=== PATIENT | female | born 1925 | race Caucasian/White ===

== ENCOUNTER → 2016-06-10 | Outpatient (CLI) | payer MEDICARE ==
[~2016-06-10] MED LIST: ACETAMINOPHEN P1 TA1 PO; ALLEGRA 180MG180 MG PO; ARICEPT23 MG PO; ASPIRIN EC81 MG PO; AZO-CRANBERRY450 MG PO; BACTRIM DS 8001 TAB PO; BUSPAR 10MG TAB10 MG PO; BUSPIRONE5 MG PO; CEFDINIR 300MG300 MG PO; CLARITIN10 MG PO; CYANOCOBAL1000 MCG/1 IM; D-10001 TAB PO; D-31000 IU PO; DIAZEPAM5 MG PO; DIFLUCAN150 MG PO; DONEPEZIL 10MG10 MG PO; E-400400 IU PO; ESCITALOPRAM20 MG PO; ESTRADIOL0.025 MG/1 TD; ESTRADIOL0.5 MG PO; FERROUS SULFATE65 MG PO; FOLBIC RF1 TAB IM; HYDROCODONE1 TABLET PO; IBU400 MG PO; IBUPROFEN200 MG PO; LEVAQUIN500 MG PO; LEVOTHYROXIN0.088 MG PO; LEXAPRO 10 MG T10 MG PO; MULTI VITAMINS1 TA1 PO; NAPROSYN 500MG500 MG PO; OMNICEF 300 MG300 MG PO; ONDANSETRON 4MG4 M1 PO; PANTOPRAZOLE SO40 MG PO; PREMARIN 0.60.625 MG PO; PROTONIX20 MG PO; REQUIP 1 MG TABL1 MG PO; ROPINIROLE HYDRO1 MG PO; ROPINIROLE HYDRO2 MG PO; SINEMET 10/1001 TAB PO; SINEMET CR 50 M1 TE1 PO; SYNTHROID0.088 MG PO; VALIUM 5MG TABLE5 MG PO; XANAX 1MG TABLET1 MG PO; [UNRECOGNIZED DRUG - OTHER] PO
[2016-06-10 11:42] LABS: URINE BILIRUBIN - DIPSTICK NEGATIVE (NEG); URINE BLOOD 3+ (NEG)
== END ==
LOC: LAB 11:11
DX: N39.0 Urinary tract infection, site not specified (principal)

== ENCOUNTER 2016-09-16 16:34 | Inpatient (IN) | payer OTHER, MEDICARE ==
[~2016-09-16] VITALS: Ht 157.5 cm; Wt 49.6 kg
[2016-09-16 16:51] LABS: HEMOGLOBIN 11.7 g/dL (12.2-16.2); LYMPH # 3.2 K/mm3 (0.7-4.5); LYMPH % 46.1 % (10-50.0)
--- NOTE | 2016-09-16 17:03 | Emergency Room Report ---
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 N Clinical Suspician of Infection? N Mental Status: 1 - Regular (Normal Baseline) Sepsis Risk:Low Sepsis Risk Have you (or family members/close friends) recently traveled outside the [place]? N If Yes, where/when: Have you had exposure to infectious disease within the past month? TB? Other? Specify: Baseline ambulates w/ walker, per EMS had fall today and now c/o left hip pain. No numbness or tingling, no weakness. Now cannot ambulate. ALLERGIES Coded Allergies: Sulfa (Sulfonamide Antibiotics) (09/16/16) trimethoprim (09/16/16) Home Medications Reported Medications NAPROXEN (NAPROSYN 500MG TAB) 500 MG PO BIDP PRN NEEDED FOR PAIN/ INFLAMMATIO Alprazolam (Xanax 1MG) 1 MG PO TIDP PRN ANXIETY FERROUS SULFATE (Ferrous Sulfate) 325 MG PO BID VITAMIN B12 (Cyanocobalamin Injection) 1,000 MCG IM QMONTH CHOLECALCIFEROL (VITAMIN D3) (Vitamin D) 1,000 UNIT PO DAILY Carbidopa/Levodopa (Sinemet Cr 50-200 Tablet) 1 TAB PO QID ASPIRIN ENTERIC COATED (Aspirin EC) 81 MG PO DAILY Buspirone Hcl (Buspar 10MG) 10 MG PO TID ROPINIROLE HCL (Ropinirole) 2 MG PO BID Escitalopram Oxalate 20 MG PO DAILY Pantoprazole Sodium (Pantoprazole 40MG) 40 MG PO DAILY DONEPEZIL HCL (Donepezil 10MG Tablet) 20 MG PO QHS MULTIVITAMIN (One Daily Multivitamin) 1 TAB PO DAILY Estradiol 0.5 MG PO DAILY Acetaminophen/Diphenhydramin (Acetaminophen Pm 500 MG-25 MG) 1 TAB PO QHS Vitamin E (E-400) 400 IU PO DAILY Ibuprofen (Ibuprofen 200MG) 200 MG PO BID Levothyroxine Sodium (Synthroid 0.088MG) 100 MCG PO DAILY Ondansetron Hydrochloride (Ondansetron 4MG U/D TABLET (NON-CHEMO USE)) 4 MG PO Q6HS #30 CRANBERRY CONC/C/BACILL COAG (Azo Cranberry Tablet) 450 MG PO BID History Medical History General CAD? No Angina: No ME: No Hypertension? No Hyperlipidemia? No CHF? No DVT? No PE? No COPD? No Asthma? No Anemia? Yes GERD? No Gastric ulcers? No GI Bleed? No Hernia? No Thyroid Problems? Yes Hypothyroidism? Yes CVA? Yes Seizures? No Diabetes? No Renal Insuffiency? No End Stage Renal Disease? No UTI? Yes Stones? No GB Disease: No Nephritic Syndrome? No Asplenia? No Hepatitis? Yes Sickle Cell Disease? No Arthritis? Yes Migraines? No Cataracts? Yes Glaucoma? No MRSA? No HIV? No TB? No Anxiety? Yes Depression? Yes Cancer? Yes Site: SKIN ON NOSE More? No Immunization Hx Ped.Immunizations UTD Yes DT/Tetanus 1-4 Years Ago Flu 2014-16FSN Pneumonia Received In Past Surgical Hx Previous Surgery?Y BUNIONECTOMY HYSTERECTOMY BLADDER REPAIR RT HIP REPLACEMENT BILATERAL CATARACTS SKIN CA ON THE NOSE Family History Family Hx Diabetes No CAD Yes Hypertension Yes Hyperlipidemia No Cancer Yes TB No Social History Smoking Hx Smoker: Never Smoker Tobacco: No Type N/A Are you/the child exposed to second-hand smoke: No Alcohol Alcohol: No Review of Systems All Other Systems Reviewed and Negative Musculoskeletal see HPI Psychiatric/Neurological see HPI Physical Exam Vital Signs Vital Signs Date Time Temp Pulse Resp B/P Pulse O2 O2 Flow FiO2 Ox Delivery Rate 09/16 1646 16 09/16 1637 98.3 97 18 96 General Appearance normal appearance, WD/WN Eye Exam - bilateral eye normal exam, bilateral eye PERRL, bilateral eye EOMI Neck normal inspection, non-tender, supple, full range of motion Respiratory Status Yes: trachea midline, chest symmetrical, non tender chest. No: respiratory distress, tender on palpation, use of accessory muscles, pain on inspiration, pain on expiration, productive cough, non productive cough. Lung Sounds bilateral: normal breath sounds, lungs clear. Cardiovascular normal exam, regular rate/rhythm, no peripheral edema, no gallop, no JVD, no murmur, no rub, normal peripheral pulses Gastrointestinal normal bowel sounds, normal exam, non tender, soft, no organomegaly, no pulsatile mass, no guarding, no rebound Back no vertebral tenderness, bowel/bladder continent (diaper in place) Extremities pain both trochanters with palpation. Pelvis stable. Left leg rotated internally and slightly shortened. Good color, strong DP and PT pulses with brisk CR and fully sensate. ROM limited about both hips due to pain and morphine sulfate ordered IV. Neurologic alert, normal exam (seems to have slight dementia), nonfocal, clear speech, able to answer questions but is a little vague with answers. Glascow Coma Scale Glascow Coma Scale Response Value EYE response: 4 Spontaneously 4 MOTOR response: 6 OBEYS 6 VERBAL response: 5 Oriented & Converses 5 Total 15 Skin intact, normal color Medical Decision Making LABS/Meds/Orders Pt receiving controlled substance in ED? No Results/Orders Laboratory Tests 09/16/16 1630: Sodium 139, Potassium 4.0, Chloride 105, Carbon Dioxide 22, BUN 24 H, Creatinine 1.0, Estimated Creat Clear 36 L, Estimated GFR (MDRD) 52 L, Glucose 86, Calcium 8.4 L, Total Bilirubin 0.5, AST 14 L, ALT 9 L, Alkaline Phosphatase 74, Total Protein 6.7, Albumin 3.1 L, Globulin 3.6 H, Albumin/ Globulin Ratio 0.9 L, WBC 6.9, RBC 3.66 L, Hgb 11.7 L, Hct 36.2 L, MCV 99.0 H, RDW 14.2, Plt Count 177, MPV 7.8, Gran % 43.5, Gran # 3.0, Lymphocytes % 46.1 , Monocytes % 5.0, Eosinophils % 5.0, Basophils % 0.4, Lymphocytes # 3.2, Monocytes # 0.3, Eosinophils # 0.4, Basophils # 0.0, PUBS MCHC 32.4, MCH 32.0 H Current Medication Orders Sig/Aleksander Start time Last Medication Dose Route Stop Time Status Admin Morphine Sulfate 2 MG ONCE ONE 09/16 1644 DC 09/16 IV 09/16 Ondansetron HCl 4 MG ONCE ONE 09/16 1644 DC 09/16 IV 09/16 Ondansetron HCl 0 .STK-MED ONE 09/16 1644 DC .ROUTE Sodium Chloride 10 ML PRN PRN 09/16 1645 AC IV 09/17 1636 Morphine Sulfate 0 .STK-MED ONE 09/16 1644 DC .ROUTE Orders Procedure Date/time Status DIET-NOTHING BY MOUTH 09/16 D Active Decision to admit 09/[address] PELVIS W/O CONTRAST 09/[address] ABD W/RLQ PAIN REQ 09/16 1644 Complete URINARY CATHETER INSERT 09/16 1641 Active URINALYSIS/COMPLETE 09/16 1641 Active 12 LEAD EKG-BESSON (INITIAL) 09/16 1640 Active ELECTROCARDIOGRAM REQUEST 09/16 1640 Active CHEST-AP VIEW ONLY 09/16 1636 Active IV SALINE LOCK 09/16 1636 Active CBC WITH AUTO DIFF 09/16 163 Complete CHEM 12 PROFILE 09/16 163 Complete CM/EKG CM/EKG EKG NSR, rhythm, no evid. of ischemic chgs, no ectopy, normal QRS, normal NE, normal EKG (NSR 99;) XRAY/CT/US XRAY/CT/US CT pelvis CT interpretation by reviewed by me ([facility] report reviewed) Time results known: 1821 CT Results normal/NAD (comm intertroch fx L hip) Consult Physician Consult 1 Consult/PCP Dr. Chand ok to consult; PCP has been paged Time Called 1821 Reason Pt. Condition, Admission, Orthopedic eval/care Comments Dr. Chand paged Physician Consult 2 Time Called [address] Alvares covering for PCP Dr. Maloney Departure Departure Time of Disposition 1833 Disposition Still a Patient Clinical Impression Primary Impression: Closed left hip fracture Qualifiers: Encounter type: initial encounter Qualified Code: S72.002A - Fracture of unspecified part of neck of left femur, initial encounter for closed fracture Condition STABLE Referrals Amara EDMONDS,Marcelino Fried (Family) ED Critical Care Critical Care No at 1835
[2016-09-16 19:16] LABS: URINE BILIRUBIN - DIPSTICK NEGATIVE (NEG); URINE BLOOD 1+ (NEG)
[2016-09-16 20:21] VITALS: BP 139/81
[2016-09-16 21:55] VITALS: BP 139/81
--- NOTE | 2016-09-16 22:01 | PHARMACY CLINIC NOTE ---
See Addendum Patient Demographics Patient Demographics Admission date: 09/16/16 Date: 09/16/16 Time: 2200 Allergies Coded Allergies: Sulfa (Sulfonamide Antibiotics) (09/16/16) trimethoprim (09/16/16) HEIGHT- FT: 5 IN: 2.00 K.612 VTE General Information Labs: Laboratory Tests 09/16 1630 Hematology Hgb (12.2 - 16.2 g/dL) 11.7 L Hct (37.0 - 47.0 %) 36.2 L Plt Count (142 - 424 K/mm3) 177 Disclaimer The following section includes nursing documentation that has been pulled in for pharmacy review. Clinical trial participant? No VTE prophylaxis [id number] VTE prophylaxis ordered? Yes Type of prophylaxis/treatment: ICD at 2200
[2016-09-16] MEDS ORDERED: ALPRAZOLAM0.5 MG PO (23:29)
[2016-09-17] VITALS (14 sets, daily range): BP systolic 83–119; BP diastolic 39–62
[2016-09-17] MEDS ORDERED: ESCITALOPRAM 2020 MG PO (00:36)
[2016-09-17] MEDS ORDERED: DOCUSATE SODIU100 MG PO (00:36)
[2016-09-17] MEDS ORDERED: FERROUS SULFAT200 M1 PO (00:38)
[2016-09-17] MEDS ORDERED: DIFLUCAN 100MG100 MG PO (00:40)
[2016-09-17] MEDS ORDERED: SYNTHROID 0.1M0.1 MG PO (00:50)
[2016-09-17] MEDS ORDERED: LEADER MELATONIN5 MG PO (00:51)
[2016-09-17] MEDS ORDERED: NAPROSYN500 M1 PO (00:52)
[2016-09-17] MEDS ORDERED: QUETIAPINE FUMA25 MG PO ×2 (00:54→00:55)
[2016-09-17] MEDS ORDERED: REQUIP 1 MG TABL1 MG PO (00:56)
[2016-09-17] MEDS ORDERED: SENNA LAXATIVE8.6 MG PO (00:56)
[2016-09-17] MEDS ORDERED: OMEPRAZOLE40 MG PO (00:57)
[2016-09-17] MEDS ORDERED: ACETAMINOPHEN500 M5 PO (00:58)
[2016-09-17] MEDS ORDERED: DULCOLAX10 M1 RC (00:59)
[2016-09-17] MEDS ORDERED: LACTULOSE10 GM/15 M PO (01:00)
[2016-09-17] MEDS ORDERED: ZOFRAN ODT4 MG PO (01:01)
[2016-09-17] MEDS ORDERED: TEMAZEPAM15 MG PO (01:02)
--- NOTE | 2016-09-17 05:45 | RADIOLOGY REPORT PS360 ---
CHEST-AP VIEW ONLY HISTORY: Pain following injury ORDERING PHYSICIAN: Kayla Leiva MD PATIENT AGE: 89 years COMPARISON: 08/28/2014 FINDINGS: The cardiomediastinal silhouette and pulmonary vascularity are within normal limits. Increased density in the retrocardiac region consistent with ectasia/tortuosity of the aorta along with hiatal hernia The lungs are clear without infiltrates, suspicious nodules, or pleural effusions. There are old right rib fractures. IMPRESSION: No change with no acute finding
[2016-09-17 07:08] LABS: LYMPH # 1.5 K/mm3 (0.7-4.5); LYMPH % 29.2 % (10-50.0)
[2016-09-17 07:09] LABS: HEMOGLOBIN 9.7 g/dL (12.2-16.2)
--- NOTE | 2016-09-17 08:14 | RADIOLOGY REPORT PS360 ---
CT PELVIS W/O CONTRAST INDICATION: Spontaneous fall with bilateral hip pain and tenderness worse on the left. History of right hip replacement. POSSIBLE HIP FX ORDERING PHYSICIAN: Marcelino Maloney MD PATIENT AGE: 89 years COMPARISON: None TECHNIQUE: Axial images are obtained without contrast. Sagittal and coronal reformatted images are reviewed as well. FINDINGS: Comminuted intertrochanteric fractures present on the left with mild impaction of the fracture fragments. There is 12 mm medial displacement of the distal fracture fragment with mild varices angulation of the distal fracture fragment. There is generalized osteopenia. Bipolar prosthesis is present on the right with heterotopic bone about the right hip. There is an old left inferior pubic ramus fracture. 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 Heterogeneous increased soft tissue density is noted superior to the left hip consistent with hematoma. IMPRESSION: 1. Comminuted intertrochanteric left hip fracture. 2. Soft tissue swelling with intramuscular hematoma the left gluteus medius and minimus muscles 3. Right hip prosthesis in place
--- NOTE | 2016-09-17 08:55 | HISTORY AND PHYSICAL REPORT ---
Demographics: Admit date: 09/16/16 Chief complaint: HIP FRACTURE PRIMARY DIAGNOSIS: HIP FRACTURE Allergies: Coded Allergies: Sulfa (Sulfonamide Antibiotics) (09/16/16) trimethoprim (09/16/16) History of present illness: History of present illness: 89-year-old female resident [place] and currently under hospice care for failure to thrive. Family states patient is mobile per wheelchair in as a total assist from bed to wheelchair. [facility] and family said she probably forgot that she couldn't walk and stood and when she stood she fell. Patient was admitted for LEFT hip fracture and a surgery consult for possible surgery. Cardiology clearance for surgery Past medical history: Family HX Diabetes No CAD Yes Hypertension Yes Hyperlipidemia No Cancer Yes TB No Immunization HX Ped.Immunizations UTD Yes DT/Tetanus 1-4 Years Ago Flu 2014-16FSN Pneumonia Received In Past TB Test in last year Yes Result Negative General CAD? No Angina: No AR: No Hypertension? No Hyperlipidemia? No CHF? No DVT? No PE? No COPD? No Asthma? No Anemia? Yes GERD? No Gastric ulcers? No GI Bleed? No Hernia? No Thyroid Problems? Yes Hypothyroidism? Yes CVA? Yes Seizures? No Diabetes? No Renal Insuffiency? No UTI? Yes Stones? No GB Disease: No Nephritic Syndrome? No Asplenia? No Hepatitis? No Sickle Cell Disease? No Arthritis? Yes Migraines? No Cataracts? Yes Glaucoma? No MRSA? No HIV? No TB? No Anxiety? Yes Depression? Yes Cancer? Yes Site: SKIN ON NOSE More? No Past Surgical HX Previous Surgery?Y BUNIONECTOMY HYSTERECTOMY BLADDER REPAIR RT HIP REPLACEMENT BILATERAL CATARACTS SKIN CA ON THE NOSE Current home meds: Reported Medications Quetiapine Fumarate (Quetiapine 25MG) 37.5 MG PO 0800,1400 ROPINIROLE HCL (Requip 1 Mg) 2 MG PO BID Carbidopa/Levodopa (Sinemet Cr 50-200 Tablet) 1 TAB PO QID ALPRAZOLAM (Alprazolam 0.5MG) 0.5 MG PO TIDP PRN ANXIETY Docusate Sodium 250 MG PO BID Escitalopram Oxalate (Escitalopram 20MG) 20 MG PO QHS Ferrous Sulfate 200 MG PO BID Levothyroxine Sodium (Synthroid 0.1MG) 0.1 MG PO DAILY Melatonin 10 MG PO QHS Naproxen (Naprosyn 500MG Tab) 500 MG PO BID Quetiapine Fumarate (Quetiapine 25MG) 75 MG PO BID Senna Pod (Senna Laxative) 1 TAB PO BID Omeprazole (Omeprazole 40MG) 40 MG PO QHS Acetaminophen (Acetaminophen Extra Strength) 500 MG PO Q4HP PRN PAIN Bisacodyl (Dulcolax) 10 MG RC Q3D PRN PRN NO BM Lactulose (Lactulose) 20 GM PO QID Ondansetron (Zofran 4MG Odt) 4 MG PO TIDP PRN NAUSEA VOMITING Temazepam (Temazepam 15MG) 15 MG PO QHS DONEPEZIL HCL (Donepezil 10MG Tablet) 20 MG PO QHS Social Hx: Smoking HX Tobacco No Type N/A Are you/the child exposed to second-hand smoke: No Alcohol Alcohol: No Hx of Drug Use Drug Use? No Review of systems: Constitutional No: no symptoms reported. Respiratory No: no symptoms reported. Cardiovascular No no symptoms reported Gastrointestinal/Abdominal No no symptoms reported Genitourinary No: no symptoms reported. Musculoskeletal see HPI, joint pain, muscle pain. Neurological Yes: see HPI. Exam: Lab data for last 24 hours: Laboratory Tests 09/17/16 0630: Sodium 139, Potassium 4.6, Chloride 109 H, Carbon Dioxide 28, BUN 24 H, Estimated Creat Clear 30 L, Estimated GFR (MDRD) 52 L, Glucose 100, Calcium 7.9 L, WBC 5.2, RBC 3.01 L, Hgb 9.7 L, Hct 30.3 L, MCV 100.5 H, RDW 14.5, Plt Count 139 L, MPV 7.5, Gran % 57.9, Gran # 3.0, Lymphocytes % 29.2, Monocytes % 7.8, Eosinophils % 4.4, Basophils % 0.7, Lymphocytes # 1.5, Monocytes # 0.4, Eosinophils # 0.2, Basophils # 0.0, PUBS MCHC 31.7 L, MCH 31.9 H 09/16/16 1903: Urine Color YELLOW, Urine Appearance Cloudy, Urine pH 5.5, Ur Specific [place] 1.020, Urine Protein TRACE H, Urine Ketones TRACE H, Urine Blood 1+ H, Urine Nitrate POSITIVE H, Urine Bilirubin NEGATIVE, Urine Urobilinogen 0.2, Ur Leukocyte Esterase 3+ H, Urine RBC OCC, Urine WBC 20-50, Urine Bacteria 3+, Urine Glucose NEGATIVE 09/16/16 1630: Sodium 139, Potassium 4.0, Chloride 105, Carbon Dioxide 22, BUN 24 H, Creatinine 1.0, Estimated Creat Clear 36 L, Estimated GFR (MDRD) 52 L, Glucose 86, Calcium 8.4 L, Total Bilirubin 0.5, AST 14 L, ALT 9 L, Alkaline Phosphatase 74, Total Protein 6.7, Albumin 3.1 L, Globulin 3.6 H, Albumin/ Globulin Ratio 0.9 L, WBC 6.9, RBC 3.66 L, Hgb 11.7 L, Hct 36.2 L, MCV 99.0 H, RDW 14.2, Plt Count 177, MPV 7.8, Gran % 43.5, Gran # 3.0, Lymphocytes % 46.1 , Monocytes % 5.0, Eosinophils % 5.0, Basophils % 0.4, Lymphocytes # 3.2, Monocytes # 0.3, Eosinophils # 0.4, Basophils # 0.0, PUBS MCHC 32.4, MCH 32.0 H Microbiology 09/16 1903 URINE,FO: Urine Culture - RES Admission vital signs: 1ST Vital Signs Result Date Time Pulse Ox 96 09/16 1637 Temp 98.3 09/16 1637 Pulse 97 09/16 1637 Resp 18 09/16 1637 B/P 113/78 09/16 1853 O2 Delivery ROOM AIR 09/16 2020 Exam General appearance: normal appearance, thin Eyes: normal exam ENT: normal exam Neck: normal inspection Cardiovascular: normal exam, regular rate & rhythm Respiratory: normal exam, clear to auscultation, normal breath sounds ABD: normal exam, normal bowel sounds, soft Genitourinary: catheter in place Extremities: BRIONNA hose in place LEFT extremity shorter than the RIGHT good pulses palpated Musculoskeletal: joint pain, muscle pain Skin: normal exam, intact, warm Neuro: alert, intact, patient answers questions appropriately Plan: Problem List 1. Closed left hip fracture 2. Parkinson disease 3. Delirium, acute Plan: Hip fracture-consult Ortho possible surgery, surgery clearance by cardiology. Dr. Maloney will see patient later today at 0837
[2016-09-17] MEDS ORDERED: PANTOPRAZOLE SO40 MG PO (09:05)
--- NOTE | 2016-09-17 09:17 | CONSULT NOTE ---
Consultation findings: Referring physician: Dr. Leiva Date of examination: 09/17/16 Time of examination: 0845 Exam findings: Admit date: 09/16/16 Chief complaint: LEFT hip pain PRIMARY DIAGNOSIS: Intertrochanteric fracture LEFT hip History of present illness: Patient is an 89-year-old female, a resident of [facility] admitted to hospital from the ER last evening for management of intertrochanteric fracture LEFT femur. Her family was with her in the room at the time of examination and they say patient normally does not mobilize by herself and is wheelchair-bound. She needs assistance with the transfer from bed to chair. Apparently patient was trying to get out of bed by herself yesterday and fell down sustaining the injury to her LEFT hip. No history of any other injuries. She previously had RIGHT hip fracture many years ago and underwent a hemiarthroplasty which needed to be revised because of pain. She has history of dementia and Parkinsons disease and does not communicate very well. Allergies: Coded Allergies: Sulfa (Sulfonamide Antibiotics) (09/16/16) trimethoprim (09/16/16) Past medical history: Family HX Diabetes No CAD Yes Hypertension Yes Hyperlipidemia No Cancer Yes TB No Immunization HX Ped.Immunizations UTD Yes DT/Tetanus 1-4 Years Ago Flu 2014-16FSN Pneumonia Received In Past TB Test in last year Yes Result Negative General CAD? No Angina: No AL: No Hypertension? No Hyperlipidemia? No CHF? No DVT? No PE? No COPD? No Asthma? No Anemia? Yes GERD? No Gastric ulcers? No GI Bleed? No Hernia? No Thyroid Problems? Yes Hypothyroidism? Yes CVA? Yes Seizures? No Diabetes? No Renal Insuffiency? No UTI? Yes Stones? No GB Disease: No Nephritic Syndrome? No Asplenia? No Hepatitis? No Sickle Cell Disease? No Arthritis? Yes Migraines? No Cataracts? Yes Glaucoma? No MRSA? No HIV? No TB? No Anxiety? Yes Depression? Yes Cancer? Yes Site: SKIN ON NOSE More? No Past Surgical HX Previous Surgery?Y BUNIONECTOMY HYSTERECTOMY BLADDER REPAIR RT HIP REPLACEMENT BILATERAL CATARACTS SKIN CA ON THE NOSE Current home meds: Reported Medications Quetiapine Fumarate (Quetiapine 25MG) 37.5 MG PO 0800,1400 ROPINIROLE HCL (Requip 1 Mg) 2 MG PO BID Carbidopa/Levodopa (Sinemet Cr 50-200 Tablet) 1 TAB PO QID ALPRAZOLAM (Alprazolam 0.5MG) 0.5 MG PO TIDP PRN ANXIETY Docusate Sodium 250 MG PO BID Escitalopram Oxalate (Escitalopram 20MG) 20 MG PO QHS Ferrous Sulfate 200 MG PO BID Levothyroxine Sodium (Synthroid 0.1MG) 0.1 MG PO DAILY Melatonin 10 MG PO QHS Naproxen (Naprosyn 500MG Tab) 500 MG PO BID Quetiapine Fumarate (Quetiapine 25MG) 75 MG PO BID Senna Pod (Senna Laxative) 1 TAB PO BID Omeprazole (Omeprazole 40MG) 40 MG PO QHS Acetaminophen (Acetaminophen Extra Strength) 500 MG PO Q4HP PRN PAIN Bisacodyl (Dulcolax) 10 MG RC Q3D PRN PRN NO BM Lactulose (Lactulose) 20 GM PO QID Ondansetron (Zofran 4MG Odt) 4 MG PO TIDP PRN NAUSEA VOMITING Temazepam (Temazepam 15MG) 15 MG PO QHS DONEPEZIL HCL (Donepezil 10MG Tablet) 20 MG PO QHS Social Hx: Smoking HX Tobacco No Type N/A Are you/the child exposed to second-hand smoke: No Alcohol Alcohol: No Hx of Drug Use Drug Use? No Review of systems: Constitutional No: no symptoms reported. Respiratory No: no symptoms reported. Cardiovascular No no symptoms reported Gastrointestinal/Abdominal No no symptoms reported Genitourinary No: no symptoms reported. Musculoskeletal see HPI, joint pain, muscle pain. Neurological Yes: see HPI. Exam: Lab data for last 24 hours: Laboratory Tests 09/17/16 0630: Sodium 139, Potassium 4.6, Chloride 109 H, Carbon Dioxide 28, BUN 24 H, Estimated Creat Clear 30 L, Estimated GFR (MDRD) 52 L, Glucose 100, Calcium 7.9 L, WBC 5.2, RBC 3.01 L, Hgb 9.7 L, Hct 30.3 L, MCV 100.5 H, RDW 14.5, Plt Count 139 L, MPV 7.5, Gran % 57.9, Gran # 3.0, Lymphocytes % 29.2, Monocytes % 7.8, Eosinophils % 4.4, Basophils % 0.7, Lymphocytes # 1.5, Monocytes # 0.4, Eosinophils # 0.2, Basophils # 0.0, PUBS MCHC 31.7 L, MCH 31.9 H 09/16/161902: Urine Color YELLOW, Urine Appearance Cloudy, Urine pH 5.5, Ur Specific [place] 1.020, Urine Protein TRACE H, Urine Ketones TRACE H, Urine Blood 1+ H, Urine Nitrate POSITIVE H, Urine Bilirubin NEGATIVE, Urine Urobilinogen 0.2, Ur Leukocyte Esterase 3+ H, Urine RBC OCC, Urine WBC 20-50, Urine Bacteria 3+, Urine Glucose NEGATIVE 09/16/161629: Sodium 139, Potassium 4.0, Chloride 105, Carbon Dioxide 22, BUN 24 H, Creatinine 1.0, Estimated Creat Clear 36 L, Estimated GFR (MDRD) 52 L, Glucose 86, Calcium 8.4 L, Total Bilirubin 0.5, AST 14 L, ALT 9 L, Alkaline Phosphatase 74, Total Protein 6.7, Albumin 3.1 L, Globulin 3.6 H, Albumin/ Globulin Ratio 0.9 L, WBC 6.9, RBC 3.66 L, Hgb 11.7 L, Hct 36.2 L, MCV 99.0 H, RDW 14.2, Plt Count 177, MPV 7.8, Gran % 43.5, Gran # 3.0, Lymphocytes % 46.1 , Monocytes % 5.0, Eosinophils % 5.0, Basophils % 0.4, Lymphocytes # 3.2, Monocytes # 0.3, Eosinophils # 0.4, Basophils # 0.0, PUBS MCHC 32.4, MCH 32.0 H Microbiology 09/16 1902 URINE,FO: Urine Culture - RES Admission vital signs: 1ST Vital Signs Result Date Time Pulse Ox 96 09/16 1637 Temp 98.3 09/16 1637 Pulse 97 09/16 1637 Resp 18 09/16 1637 B/P 113/78 09/16 1853 O2 Delivery ROOM AIR 09/16 2020 Exam General appearance: normal appearance, thin built, no apparent distress Eyes: normal exam ENT: normal exam Neck: normal inspection, neck soft and supple, trachea central Cardiovascular: normal exam, regular rate & rhythm Respiratory: normal exam, clear to auscultation, normal breath sounds ABD: normal exam, normal bowel sounds, soft, no organomegaly Genitourinary: catheter in place Skin: normal exam, intact, warm Neuro: alert, intact, patient answers questions appropriately On examination of her lower extremities, the LEFT leg is shortened and the foot is externally rotated. On examination of the LEFT hip the skin is normal. No rashes or lesions noted. She is tender over the LEFT hip. Any attempted movements of the LEFT hip are painful. Thigh and calf are soft and nontender. Dorsalis pedis and posterior tibial pulses are palpable 2+ bilaterally. Sensation is grossly intact. She has good range of foot, ankle and toe movements. On examination of her RIGHT hip/thigh she has well-healed surgical scars from previous surgery. Imaging: CT scan of her pelvis performed yesterday is reviewed along with the radiologist's report. The CT shows a comminuted, displaced intertrochanteric fracture of the LEFT femur. A stable Hemiarthroplasty noted on the RIGHT side. For some reason unknown to me, she did not have any plain x-rays but had a CT scan in the ER. We'll obtain x-rays of her LEFT hip and LEFT femur today. Impression: 1. Closed, comminuted Intertrochanteric fracture, LEFT femur 2. Parkinson's disease 3. Alzheimer's disease 4. Urinary tract infection Recommendations: I reviewed the clinical and imaging findings with the patient and her family who were with her in the room. I have discussed the diagnosis and management options in detail including both nonsurgical and surgical. I have recommended surgical remediation in the form of a femoral nailing (cephalo-medullary nailing). I explained the procedure, risks and benefits, alternatives and the expected postoperative course and outcome. I explained to the patient and her family the type of the fracture and the proposed surgical procedure. The complications discussed include but are not limited to infection, bleeding, injury to nerves and blood vessels, DVT, PE, screw cut-out/implant failure, loss of fixation, nonunion, malunion/malrotation, osteonecrosis of the femoral head, femoral shaft fracture, painful hardware, heterotopic ossification, stiffness, weakness, incomplete relief of pain, incomplete return of function or motion and the likely need for further surgery in future, and anesthetic/medical complications including heart attack, stroke, transfusion reaction or . We discussed how any of these events can be devastating. We have discussed nonsurgical alternatives as well. The nonoperative management would involve prolonged bedrest and skeletal/skin traction until the fracture heals sufficiently. There is very high risk of complications like pressure ulcers, UTI and respiratory infection, DVT and PE with nonsurgical management. I have explained to them that the standard of care for this sort of injuries is surgical throughout the country unless the patient is very ill for surgical management. We also discussed the postoperative course including the rehab and physical therapy required. She is a [facility] a [facility] and will be going back there for rehab after surgery. All their questions were answered and they verbalized a good understanding. We will await medical clearance by Dr. Castro team. Well also obtain a preoperative anesthetic evaluation. The limb was marked appropriately and initialed by me. I have recommended- Type and screen Continue nothing by mouth Continue IV fluids DVT prophylaxis as per protocol Analgesia as needed Consent patient for a cephalo-medullary nailing LEFT hip. Order 2 g of IV Ancef for preoperative prophylaxis to start half an hour before surgery I am planning to take her for surgery at the earliest opportunity today. Continue medical management as per Dr. Maloney. Thank you for the opportunity to take part in the care of this very pleasant patient.
--- NOTE | 2016-09-17 09:45 | CONSULT NOTE ---
See Addendum Standard Demographics Patient Demo Date of Consultation: 09/17/16 Referring Provider: Jasbir Maloney MD Reason for Consultation: Pre-op Evaluation PRIMARY DIAGNOSIS: HIP FRACTURE Problem list Problem list: 1. Previous RIGHT hip replacement approximately 2002 2. Parkinson's disease 3. Alzheimer's disease 4. Hypothyroidism, on replacement. History of present illness: History of present illness: 89-year-old female resident [place] and currently under hospice care for failure to thrive. Family states patient is mobile per wheelchair in as a total assist from bed to wheelchair. Patient uses safety devices at the intermediate and family said she probably forgot that she couldn't walk and stood and when she stood she fell. Patient was admitted for LEFT hip fracture and a surgery consult for possible surgery. Cardiology clearance for surgery. The above per Dr. Maloney. Patient's family members in the room or pruritus to history. Patient has lost her voice from the Parkinson's disease. Reportedly he has not had any cardiac history, never smoked, has never been on treatment for high blood pressure hyperlipidemia and has no reported history of diabetes. Past Medical History: General: Hypertension No CVA Yes Seizures No TB No COPD No Asthma No Diabetes No Angina No DE No Hyperlipidemia No Urinary No Cancer Yes Rheumatic H.D. No Ulcers No MRSA No GB Disease No Other PARKINSONS, LOW BP,ARTHIT Past Surgical HX: Previous Surgery?Y BUNIONECTOMY HYSTERECTOMY BLADDER REPAIR RT HIP REPLACEMENT BILATERAL CATARACTS SKIN CA ON THE NOSE Allergies Coded Allergies: Sulfa (Sulfonamide Antibiotics) (09/16/16) trimethoprim (09/16/16) Home medications: Reported Medications Ferrous Sulfate 325 MG PO BID Quetiapine Fumarate (Quetiapine 25MG) 37.5 MG PO 0800,1400 Quetiapine Fumarate (Quetiapine 25MG) 75 MG PO QHS ROPINIROLE HCL (Requip 1 Mg) 2 MG PO BID Lactulose (Lactulose) 20 GM PO BIDP PRN CONSTIPATION Pantoprazole Sodium (Pantoprazole 40MG) 40 MG PO DAILY Carbidopa/Levodopa (Sinemet Cr 50-200 Tablet) 1 TAB PO QID ALPRAZOLAM (Alprazolam 0.5MG) 0.5 MG PO TIDP PRN ANXIETY Docusate Sodium 250 MG PO BID Escitalopram Oxalate (Escitalopram 20MG) 20 MG PO QHS Levothyroxine Sodium (Synthroid 0.1MG) 0.1 MG PO DAILY Melatonin 10 MG PO QHS Naproxen (Naprosyn 500MG Tab) 500 MG PO BID Senna Pod (Senna Laxative) 1 TAB PO BID Acetaminophen (Acetaminophen Extra Strength) 500 MG PO Q4HP PRN PAIN Bisacodyl (Dulcolax) 10 MG RC Q3D PRN PRN CONSTIPATION Ondansetron (Zofran 4MG Odt) 4 MG PO TIDP PRN NAUSEA VOMITING Temazepam (Temazepam 15MG) 15 MG PO QHS Current Medications: Current Medications Potassium Chloride/Dextrose/Sod Cl 1,000 ML .STK-MED ONE IV (DC) Levothyroxine Sodium 0.1 MG DAILY PO Carbidopa/Levodopa 0 .STK-MED ONE PO (DC) Morphine Sulfate 0 .STK-MED ONE .ROUTE (DC) Buspirone HCl 0 .STK-MED ONE PO (DC) Alprazolam 0 .STK-MED ONE .ROUTE (DC) Pantoprazole Sodium 0 .STK-MED ONE .ROUTE (DC) Pantoprazole Sodium 40 MG QHS PO Buspirone HCl 10 MG TID PO Carbidopa/Levodopa 1 TABLET QID PO Donepezil HCl 20 MG QHS PO (CKD) Alprazolam 1 MG TIDP PRN PO Morphine Sulfate 2 MG ONCE ONE IV (DC) Potassium Chloride/Dextrose/Sod Cl 1,000 ML .[id number] IV Morphine Sulfate 2 MG Q2HP PRN IV Ondansetron HCl 4 MG Q6HP PRN IV Sodium Chloride 10 ML PRN PRN IV Morphine Sulfate 0 .STK-MED ONE .ROUTE (DC) Morphine Sulfate 2 MG ONCE ONE IV (DC) Ondansetron HCl 4 MG ONCE ONE IV (DC) Ondansetron HCl 0 .STK-MED ONE .ROUTE (DC) Sodium Chloride 10 ML PRN PRN IV Morphine Sulfate 0 .STK-MED ONE .ROUTE (DC) Immunization HX Ped.Immunizations UTD Yes DT/Tetanus 1-4 Years Flu 2015-16FSN Pneumonia RECEIVED IN PAST TB Test in last year Yes Result Negative Family history Family HX Family Hx Insignificant No Diabetes No CAD Yes Hypertension Yes Hyperlipidemia No Cancer Yes TB No Social Hx: Smoking HX Tobacco No Type N/A Are you/the child exposed to second-hand smoke: No Alcohol Alcohol: No Hx of Drug Use Drug Use? No Comment: [facility] resident [facility] intermediate. Review of systems: Constitutional see HPI. Respiratory see HPI. Cardiovascular see HPI Gastrointestinal/Abdominal see HPI Genitourinary see HPI. Musculoskeletal see HPI. Neurological Yes: see HPI. Exam: Admission Vital Signs: 1ST Vital Signs Result Date Time Pulse Ox 96 09/16 1637 Temp 98.3 09/16 1637 Pulse 97 09/16 1637 Resp 18 09/16 1637 B/P 113/78 09/16 1853 O2 Delivery ROOM AIR 09/16 2020 Last Vital Signs: Vital Signs Result Date Time Resp 18 09/17 0818 Pulse Ox 95 09/17 0800 B/P 115/62 09/17 0800 O2 Delivery ROOM AIR 09/17 0800 Temp 96.5 09/17 0800 Pulse 73 09/17 0800 Exam General appearance: white female lying in bed in no acute distress. Opens her eyes to verbal stimuli and attempts to talk but voice is very weak and unable to understand. Neck: no carotid bruit, no JVD Cardiovascular: regular rate & rhythm Respiratory: poor inspiratory effort but no appreciable rales or wheezing. ABD: soft, no tenderness Extremities: good DP and PT pulses with no edema noted. Neuro: awakens to verbal stimuli. Unable to communicate. Laboratory data: Laboratory Tests 09/17/16 0630: Sodium 139, Potassium 4.6, Chloride 109 H, Carbon Dioxide 28, BUN 24 H, Estimated Creat Clear 30 L, Estimated GFR (MDRD) 52 L, Glucose 100, Calcium 7.9 L, WBC 5.2, RBC 3.01 L, Hgb 9.7 L, Hct 30.3 L, MCV 100.5 H, RDW 14.5, Plt Count 139 L, MPV 7.5, Gran % 57.9, Gran # 3.0, Lymphocytes % 29.2, Monocytes % 7.8, Eosinophils % 4.4, Basophils % 0.7, Lymphocytes # 1.5, Monocytes # 0.4, Eosinophils # 0.2, Basophils # 0.0, PUBS MCHC 31.7 L, MCH 31.9 H 09/16/161902: Urine Color YELLOW, Urine Appearance Cloudy, Urine pH 5.5, Ur Specific [place] 1.020, Urine Protein TRACE H, Urine Ketones TRACE H, Urine Blood 1+ H, Urine Nitrate POSITIVE H, Urine Bilirubin NEGATIVE, Urine Urobilinogen 0.2, Ur Leukocyte Esterase 3+ H, Urine RBC OCC, Urine WBC 20-50, Urine Bacteria 3+, Urine Glucose NEGATIVE 09/16/16 1630: Sodium 139, Potassium 4.0, Chloride 105, Carbon Dioxide 22, BUN 24 H, Creatinine 1.0, Estimated Creat Clear 36 L, Estimated GFR (MDRD) 52 L, Glucose 86, Calcium 8.4 L, Total Bilirubin 0.5, AST 14 L, ALT 9 L, Alkaline Phosphatase 74, Total Protein 6.7, Albumin 3.1 L, Globulin 3.6 H, Albumin/ Globulin Ratio 0.9 L, WBC 6.9, RBC 3.66 L, Hgb 11.7 L, Hct 36.2 L, MCV 99.0 H, RDW 14.2, Plt Count 177, MPV 7.8, Gran % 43.5, Gran # 3.0, Lymphocytes % 46.1 , Monocytes % 5.0, Eosinophils % 5.0, Basophils % 0.4, Lymphocytes # 3.2, Monocytes # 0.3, Eosinophils # 0.4, Basophils # 0.0, PUBS MCHC 32.4, MCH 32.0 H Microbiology Date/Time Procedure - Status Source Growth 09/16 1902 Urine Culture - RES URINE,FO Plan: Assessment: 1. LEFT hip fracture after fall. 2. Preoperative evaluation 3. Parkinson's disease 4. Alzheimer's disease 5. History of hypothyroidism. Recommendations: We'll obtain an echocardiogram to evaluate LEFT ventricular ejection fraction and valve status. Provided no significant abnormalities patient could proceed with surgical correction of her LEFT hip with perioperative aspirin and nitrate therapy. at 2205
[2016-09-17 11:24] LABS: ABO BLOOD TYPE O; RH BLOOD TYPE POSITIVE
--- NOTE | 2016-09-17 12:08 | RADIOLOGY REPORT PS360 ---
HIP LT 2-3V W/PELVIS IF PERFOR HISTORY: HIP FRACTURE ORDERING PHYSICIAN: Marcelino Maloney MD PATIENT AGE: 89 years COMPARISON: None FINDINGS: Comminuted left intertrochanteric hip fractures present with impaction and mild varus angulation of the distal fracture fragment. Pastor catheter is present. IMPRESSION: Comminuted left intertrochanteric hip fracture with varus angulation of the distal fracture fragment
--- NOTE | 2016-09-17 12:09 | RADIOLOGY REPORT PS360 ---
FEMUR-LT-2 VIEWS HISTORY: Follow-up hip fracture FULL LENGTH FEMUR AP AND LATERAL ORDERING PHYSICIAN: Marcelino Maloney MD PATIENT AGE: 89 years COMPARISON: None FINDINGS: Comminuted mildly displaced intertrochanteric fracture involves the left hip with moderate varus angulation of the distal fracture fragment. The mid and distal aspect of the femur is unremarkable. IMPRESSION: Comminuted intertrochanteric left hip fracture with mild medial displacement of the distal fracture fragment
[2016-09-17 15:46] LABS: ANTIHUMAN GLOB CROSSMATCH COMPAT
--- NOTE | 2016-09-17 16:14 | Anesthesia Record ---
Anesthesia Record Part I Total IV fluids: 1600 EBL (ml): 100 Urine Output: 250 Units of blood given: 0 B/P: 88/44 % SaO2: 95 Pulse: 85 Resps: 16 Temp: 97.5 Patient is: Drowsy, Nasal O2, Stable Stable to PACU at: 1609 at 1614
--- NOTE | 2016-09-17 16:15 | Anesthesia Record ---
Anesthesia Record Part II Discharge time: 1639 Destination: Second Floor PACU nurse assessment review? Yes Patient is: Awake, Nasal O2 Anesthesia complications? No at 1615
--- NOTE | 2016-09-17 16:55 | RADIOLOGY REPORT PS360 ---
FEMUR-LT-2 VIEWS HISTORY: POST-OP LEFT GAMMA NAIL ORDERING PHYSICIAN: Marcelino Maloney MD PATIENT AGE: 89 years COMPARISON: 09/09/2016 FINDINGS: Status post ORIF comminuted intertrochanteric fracture. Gamma nail with long intramedullary jahaira is been placed with good position and no evidence of orthopedic complication. Postsurgical gas noted. IMPRESSION: Good alignment status post ORIF left hip fracture
--- NOTE | 2016-09-17 17:19 | Operative Note ---
Procedure/Operative Record Date of Procedure: 09/17/16 Referring physician: Dr. Maloney Pre-op diagnosis: Closed, comminuted, displaced intertrochanteric fracture, LEFT hip Post-op diagnosis: Closed, comminuted, displaced intertrochanteric fracture, LEFT hip Procedure performed: Cephalo-medullary (Gamma) nailing, LEFT femur Surgeon: JANET RASHEED MD Wedding Transportation Driver(s): Aliza Moscoso Anesthesia: Spinal Indications: Patient is an 89-year-old female who fell at the correction and sustained an injury to her LEFT hip on 09/16/2016. Following evaluation in the emergency room where imaging showed a displaced and comminuted intertrochanteric fracture of her LEFT proximal femur, she was admitted for further management. After evaluating her, I discussed the diagnosis and management options in detail including both nonsurgical and surgical, with the patient and her family. She was limited with her mobility prior to the injury and is effectively wheelchair- bound needing help for transfers. She had a RIGHT hip fracture in the past and had a hemiarthroplasty which subsequently needed a revision. After a detailed discussion with the patient and her family a decision was made to fix the LEFT hip fracture internally with a cephalo-medullary nail. I discussed the procedure , alternatives, risks and benefits, postoperative recovery and rehabilitation and the expected outcomes. The complications discussed include but are not limited to DVT, PE, infection, bleeding, injury to nerves and blood vessels, screw cut-out/implant failure, loss of fixation, nonunion, malunion/malrotation, osteonecrosis of the femoral head, femoral shaft fracture, painful hardware, heterotopic ossification, stiffness, weakness, incomplete relief of pain, incomplete return of function or motion and the likely need for further surgery in future, and anesthetic/medical complications including heart attack, stroke, transfusion reaction or . The patient and her family wished to proceed with the surgical remediation. Consent form was reviewed and signed by me. The limb was appropriately marked and initialed by me. Following appropriate preoperative workup and medical/cardiac clearance, she was brought to the operating room for surgery. Findings: Comminuted, displaced and unstable intertrochanteric fracture RIGHT proximal femur as noted on the preoperative x-rays. The fracture was well reduced with closed manipulation prior to fixation. Description of procedure: Following appropriate preoperative workup and medical/cardiac clearance, patient was brought to the operating room and a spinal anesthesia was administered. She was then positioned supine on the fracture table and all the bony prominences were appropriately padded. The LEFT foot was secured in the footplate and the footplate was attached to the fracture table. The RIGHT leg was placed out of the way in a leg rod. Under fluoroscopic guidance the fracture was reduced by traction and satisfactory reduction was obtained. The reduction was confirmed on both AP and lateral views. The LEFT hip and thigh were then prepped and draped in the usual sterile fashion. Administration of prophylactic antibiotics was confirmed with the anesthetic team (2 g of IV Ancef was administered). A preprocedure timeout was performed as per the hospital protocol. After marking the level of the greater trochanter on the skin under fluoroscopy, a skin incision was made proximal to the greater trochanter in line with the femoral shaft. The dissection was then carried through the subcutaneous tissue. The tensor fascia muscle was split in line with the fibers. This provided access to the tip of the greater trochanter. Under fluoroscopic guidance a guidewire was placed at the tip of the greater trochanter, the position was confirmed on both fluoroscopic views and advanced into the proximal femur. The proximal segment was then reamed over the guidewire and the guidewire was exchanged for a ball- tipped guidewire which was advanced into the distal femur. The position of the guidewire was confirmed in both AP and lateral views. Then sequential reaming was performed over the guidewire up to 12.5 mm reamer. The required nail length was measured. A 125 degree angle, 11 mm diameter, long (360 mm) RIGHT Lelia Gamma 3 nail was selected. The selected nail was attached to the proximal jig and the nail was then inserted into the femur under fluoroscopic guidance. After seating the nail to the appropriate level, I proceeded to introduce the lag screw. We used the [employer] computer navigation system for placement of the lag screw. The lag screw sheath assembly was placed through the appropriate hole in the jig and locked in place. Then a 1 inch skin incision was made over the lateral thigh at this level. The incision was deepened through soft tissue and the fascia kedar and the muscle was split. The trocar was removed and a guide pin was placed into the femoral head under fluoroscopic control. After confirming satisfactory placement of the guidepin in both AP and lateral fluoroscopic views the length was measured. A 90 mm lag screw was then selected. Drilling was performed over the guidewire for the lag screw. The 90 mm lag screw was then introduced over the guidewire and advanced to an appropriate level. The traction was reduced and fracture site compressed. The guide pin and sheath were then removed. The lag screw was secured in place with the set screw. After final seating of the lag screw the tip apex distance was 14 mm. I then proceeded to perform the distal locking through the dynamic hole- we used the [employer] Gamma nail distal locking jig for this. After appropriately lining the drill sleeve and nail under fluoroscopic guidance, the drill sleeve was placed through the dynamic hole and a 1 cm skin incision was made. Through the drill sleeve the 4.3 mm drill was introduced and the drill hole made for the distal locking screw. The screw length was measured and a 5 mm x 50 mm cortical bone screw was introduced through the dynamic locking hole. The distal and proximal jigs were then removed and fluoroscopic screening was performed in both the AP and lateral views. The reduction and fixation were noted to be satisfactory and stable. Fluoroscopic images were obtained and stored digitally. The wounds were washed out with normal saline and hemostasis was obtained with the diathermy cautery. The wounds were then closed in layers with the 0 Vicryl, 2-0 Vicryl and 4-0 Monocryl subcuticular sutures, Dermabond and Steri-Strips to the skin. 30 mL of 0.5 percent Marcaine with epinephrine was injected into the skin and subcutaneous tissue around the incisions for postoperative pain relief. Sterile dressings were applied. The LEFT foot was taken out of the foot rod and the RIGHT leg out of the leg rod and placed on the table extension. The limb lengths were noted to be equal and there was no rotational malalignment. Dorsalis pedis and posterior tibial pulses were 2+ on both sides. At the end of the procedure, swab, needle and instrument counts were correct according to the scrub team. Patient was then transferred onto the bed. She was then transported to the PACU in a stable condition. Patient tolerated the procedure well and there were no immediate complications. Portable x-rays of her LEFT hip/femur AP and cross-table lateral views were obtained in the PACU and were noted to be satisfactory. Postoperatively she will have 2 further doses of prophylactic antibiotics, treatment for urinary tract infection as indicated by the culture results, DVT prophylaxis as per protocol and IV and oral analgesia as needed. Medical management as per Dr. Maloney's team. She can be mobilized on the first postoperative day with a walker, weight bearing on the LEFT side as tolerated. EBL (ml): 100 Implant: [place] Gamma 3 long nailing system- 125 degree angle, 11 mm diameter, long (360 mm) LEFT [place] Gamma 3 nail, 10.5 mm x 90 mm lag screw and 5 mm x 50 mm distal locking screw. Industry representatives: Koko Marshall from [employer] Complications: None Specimens: None
[2016-09-18] VITALS (24 sets, daily range): BP systolic 70–111; BP diastolic 33–74
[2016-09-18 06:51] LABS: LYMPH # 1.3 K/mm3 (0.7-4.5); LYMPH % 19.6 % (10-50.0)
[2016-09-18 07:16] LABS: HEMOGLOBIN 7.5 g/dL (12.2-16.2)
--- NOTE | 2016-09-18 09:56 | ACUTE CARE PROGRESS NOTE (QUA) ---
Progress Notes Subjective Date 09/18/16 Time 0952 Note had surg yesterday Patient/family reports: lethargic Nursing reports: sedated Objective Findings Last VS-Temp:98.6 B/P:92/44 Pulse:96 Resp:18 SaO2:93 ROOM AIR Last weight lbs:109 oz:6 K.612 Method:Bed Scales Exam General appearance: lethargic Eyes: PERRLA ENT: dry mucous membranes Neck: no JVD Cardiovascular: regular rate & rhythm, murmur Respiratory: no respiratory distress ABD: soft Genitourinary: catheter in place Extremities: edema Musculoskeletal: s/p surg Skin: no gross abnormalities Neuro: non-focal Reviewed: allergies, medications, vital signs, lab results Assessment/Plan Problem List 1. Closed left hip fracture 2. Parkinson disease 3. Delirium, acute 4. UTI (urinary tract infection) 5. Renal insufficiency 6. Anemia Patient condition Stable Plan: order additional tests This inpt stay is expected to cross 2 MNs from start of care Yes Comments: will transfuse 2 units at this time at 0956
--- NOTE | 2016-09-18 11:04 | RADIOLOGY REPORT PS360 ---
PROCEDURE: 2-D M-mode and color Doppler study INDICATIONS FOR THE TEST: Chest pain COPD Heart Murmur Tobacco Smoking Palpitations Fatigue Syncope Edema Hypertension Diabetes Mellitus Rheumatic Fever SOB EVANS Obesity Hyperlipidemia Family History HD Additional History CVA, L HIP FX PREOP PATIENT INFORMATION HEIGHT: 62 WEIGHT:109 GENDER: Female B/P:113/78 2-D/M-MODE INTERPRETATION: 2-D MEASUREMENTS OBSERVED VALUES IN CMS Right Ventricular Dimension (RVDd) 3.1 Interventricular Septum (Thickness)(IVsd) 1.2 Left Ventricular Internal Dimensions(LVIDd) 4.8 Left Ventricular Posterior Wall (Thickness)(LVPWd) 0.7 Aortic Root 2.8 Aortic Cusp Separation 2.0 Left Atrial Dimensions (LAD) 3.8 2D 1. Left atrium is mildly enlarged, left ventricle is normal size, there is mild qualitative concentric left ventricular hypertrophy, septum has sigmoid configuration, visually estimated ejection fraction of 55% with no obvious regional wall motion abnormality. 2. The right atrium is mildly enlarged, right ventricle is mildly dilated with normal contractility. 3. The aortic valve is thickened and calcified leaflet continue to display mobility. 4. The mitral valve has mitral calcification there is no mitral stenosis. 5. The tricuspid valve is structurally normal. 6. The pulmonic valve is not well visualized. 7. No significant pericardial effusion noted. DOPPLER INTERROGATION: Doppler interrogation of the aortic mitral and tricuspid valvular presence of mild aortic, mild mitral and mild tricuspid regurgitation, tricuspid regurgitant jet velocity is insufficient for calculation of the right ventricular systolic pressure, grade 1 diastolic dysfunction seen without tissue Doppler evidence of raised left atrial pressure. CONCLUSION: 1. Mildly enlarged left atrium, normal left ventricular size, mild qualitative concentric left ventricular hypertrophy, visually estimated ejection fraction 55% with no obvious regional wall motion abnormality, grade 1 diastolic dysfunction seen without Doppler evidence of raised left atrial pressure. 2. Thickened and calcified aortic valve without aortic stenosis, there is mild aortic insufficiency. 3. Mild mitral and tricuspid regurgitation. 4. No significant pericardial effusion noted.
--- NOTE | 2016-09-18 12:46 | RADIOLOGY REPORT PS360 ---
HIP LT 2-3V. Ordering Physician: Marcelino Maloney MD Patient Age: 89 years: Female HISTORY: LEFT HIP REPLACEMENT TECHNIQUE: AP and lateral views of left hip, left femur COMPARISON made to CT 09/16/2016 FINDINGS These AP and lateral views of the left hip and left femur show a long intramedullary jahaira now in place. Providing fixation to the intertrochanteric fracture fracture of the left at. It extends down to the distal metaphysis were secured by single screw transversing this at the distal femur. The distal aspect medullary jahaira is directed anteriorly and with this tip just behind anterior cortex distal femur. However no fractures evident on these views. Follow-up recommended. Proximally the gamma nail of screws passes through the intramedullary jahaira into the femoral head providing fixation here. Good alignment and position at the intratrochanteric fracture region. IMPRESSION ORIF intertrochanteric fracture Long intramedullary jahaira with gamma nail has been placed
--- NOTE | 2016-09-18 16:04 | ACUTE CARE PROGRESS NOTE ---
Progress note Date: 09/18/16 Assessment: Subjective data: Elen Kendall is an 89-year-old F. She is status post cephalo-medullary nailing LEFT hip post op day # 1. She is lying down in bed. Family says she has been lethargic and closely. This had she has been drinking some water but hasnt eaten anything. No history of any fevers, chills or rigors. No history of any nausea, vomiting, chest pain or SOB. She is having blood transfusion for postoperative anemia (H and H- 7. 5/23.2). Objective: Vitals,I&O,and Labs: I reviewed her vital signs, lab results, medication, nursing notes, medical progress notes and also discussed with the nursing staff regarding her progress. Exam General appearance: Alert, awake, lethargic, no acute distress ENT: dry mucous membranes Cardiovascular: regular rate & rhythm Respiratory: no respiratory distress, lungs clear to auscultation bilaterally ABD: soft and nontender. Bowel sounds heard over all 4 quadrants. Genitourinary: catheter in place Skin: no gross abnormalities Neuro: non-focal On examination of her LEFT lower extremity, the limb lengths are equal. The alignment is neutral. The dressings over the LEFT hip are clean, dry and intact. Attempted movements of the LEFT hip are painful. Distal neurovascular status is intact. Thigh and calf are soft and nontender. No clinical signs of DVT. Impression: 1. Closed left hip fracture Qualifiers Encounter type: initial encounter Qualified Code: S72.002A - Fracture of unspecified part of neck of left femur, initial encounter for closed fracture 2. Parkinson disease 3. Delirium, acute 4. UTI (urinary tract infection) 5. Renal insufficiency 6. Anemia Plan: I reviewed the procedure and progress with the family. I have given them a copy of her pre-and postoperative x-rays and explained the procedure performed. She can be mobilized/transferred with the help of physical therapist weightbearing on the LEFT side as tolerated. Continue PT/OT, pain management with narcotic analgesics. Recheck H and H post transfusion. Medical management as per Dr. Castro team.
[2016-09-18 22:21] LABS: HEMOGLOBIN 9.4 g/dL (12.2-16.2)
[2016-09-19] VITALS (8 sets, daily range): BP systolic 111–152; BP diastolic 57–79
--- NOTE | 2016-09-19 09:30 | ACUTE CARE PROGRESS NOTE (QUA) ---
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 Closed left hip fracture 2. Parkinson disease 3. Delirium, acute 4. UTI (urinary tract infection) 5. Renal insufficiency 6. Anemia Patient condition Improving Plan: continue current care This inpt stay is expected to cross 2 MNs from start of care Yes Comments: marichuy england at [phone]
--- NOTE | 2016-09-19 09:30 | ACUTE CARE PROGRESS NOTE (QUA) ---
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 Closed left hip fracture 2. Parkinson disease 3. Delirium, acute 4. UTI (urinary tract infection) 5. Renal insufficiency 6. Anemia Patient condition Improving Plan: continue current care This inpt stay is expected to cross 2 MNs from start of care Yes Comments: marichuy england at [phone]
--- OUTSIDE RECORDS SUMMARY | 2016-09-19 13:47 | External Medical Summary Rpt ---
Author Author , Organization [employer] Address Unknown Phone Unavailable Care Team Providers Care Straight Ruling Machine Operator Name Role Phone Aurora Maloney MD, Unavailable Unavailable Aurora Maloney MD Purpose Continuity of Care Document - 12-29-2012 through 2016 Problems Code Diagnosis DOS Provider Status 458.0 458.0 12-29-2012 [place] ORTHOSTATIC [facility] HYPOTENSION 847.0 847.0 12-29-2012 [place] SPRAIN OF [facility] NECK [facility] 850.0 850.0 12-29-2012 [place] CONCUSSION [facility] W/O [facility] 873.0 873.0 OPEN 12-29-2012 Martin WOUND OF [facility] E849.0 E849.0 12-29-2012 Martin ACCIDENT IN 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 S72.002A FRACTURE OF UNSP PART OF NECK OF LEFT FEMUR, INIT Allergies, Adverse Reactions, Alerts Type Allergy to substance Adverse Reaction to Substance Substance Reaction Severity INGREDIENT: NO KNOWN Unknown Unknown - NO KNOWN DRUG ALLERGY Medications Na ND Rx Da Fi Fi Am Da Di Ph RX Ph St me C No te ll ll ou ys ag ar # ys at rm s nt no ma ic us Or Da si cy ia de te s n re d LI 00 08 0 No DO 40 -0 CA 94 9- Lo IN 27 20 ng E 60 13 er HC 1 L Ac 1% ti ve AL TE 49 08 0 No TA 28 -0 NU 10 9- Lo S- 29 20 ng DI 11 13 er PH 0 TH Ac ti TO ve XO ID , AD UL T 0 Vital Signs 12-29-2012 21:50 Name Value Interpretat Reference Comment ion Range Body 97.6 [degF] Temperature BP 70 mm[Hg] Diastolic BP Systolic 153 mm[Hg] Heart 67 /min Rate/Pulse O2% 95 % Respiratory 18 /min Rate 12-29-2012 21:44 Name Value Interpretat Reference Comment ion Range Body 97.6 [degF] Temperature 12-29-2012 21:06 Name Value Interpretat Reference Comment ion Range BP 70 mm[Hg] Diastolic BP Systolic 153 mm[Hg] Heart 67 /min Rate/Pulse O2% 95 % Respiratory 18 /min Rate Procedures Procedure DOS Code Location Performer Comment CLOSURE 86.59 [facility] & Amara EDMONDS SUBCUTANE OUS NEC Encounters Encounter Start End Date Code Location Performer Type Date Emergency DENICE Maloney MD (ER) 3 20:14 3 21:51 [facility]
--- OUTSIDE RECORDS SUMMARY | 2016-09-19 13:47 | External Medical Summary Rpt ---
Author Author [employer] Organization [employer] Address Unknown Phone Unavailable Purpose Continuity of Care Document - through 2016
--- OUTSIDE RECORDS SUMMARY | 2016-09-19 13:47 | External Medical Summary Rpt ---
Author Author , Organization [employer] Address Unknown Phone Unavailable Care Team Providers Care Overedger Name Role Phone Aurora Maloney MD, Unavailable Unavailable Aurora Maloney MD Purpose Continuity of Care Document - 12-29-2012 through 2016 Problems Code Diagnosis DOS Provider Status 458.0 458.0 12-29-2012 [place] ORTHOSTATIC [facility] HYPOTENSION 847.0 847.0 12-29-2012 [place] SPRAIN OF [facility] NECK [facility] 850.0 850.0 12-29-2012 [place] CONCUSSION [facility] W/O [facility] 873.0 873.0 OPEN 12-29-2012 Martin WOUND OF [facility] E849.0 E849.0 12-29-2012 Martin ACCIDENT IN [facility] E884.3 E884.3 FALL 12-29-2012 Martin FROM [facility] V06.5 V06.5 12-29-2012 [place] TETANUS-DIP [facility] [TD][DT] V12.54 V12.54 12-29-2012 [place] PERSONAL HX [facility] CEREBRAL INFARCTION W/OUT [...] Maloney MD (ER) 3 20:14 3 21:51 [facility]
--- OUTSIDE RECORDS SUMMARY | 2016-09-19 13:48 | External Medical Summary Rpt ---
Author Author [employer] Sanchez, [employer] Organization [employer] Address Unknown Phone Unavailable
--- OUTSIDE RECORDS SUMMARY | 2016-09-19 13:48 | External Medical Summary Rpt ---
Demographics Preferred Language Bahamian Marital Status Unknown Mu-Ism Affiliation Unknown Race Unknown Ethnic Group Unknown Author Author , Organization [employer] Address Unknown Phone Unavailable Purpose Continuity of Care Document - through 2016 Immunization No patient found.
--- OUTSIDE RECORDS SUMMARY | 2016-09-19 13:48 | External Medical Summary Rpt ---
Demographics Preferred Language Pakistani Marital Status Unknown Judaism Affiliation Unknown Race Unknown Ethnic Group Unknown Author Author , Organization [employer] Address Unknown Phone Unavailable Purpose Continuity of Care Document - through 2016 Immunization No patient found.
--- OUTSIDE RECORDS SUMMARY | 2016-09-19 13:52 | External Medical Summary Rpt ---
Demographics Preferred Language Croatian Marital Status Unknown Caodaism Affiliation Unknown Race Unknown Ethnic Group Unknown Author Author , Organization [employer] Address Unknown Phone Unavailable Purpose Continuity of Care Document - through 2016 Immunization No patient found.
--- OUTSIDE RECORDS SUMMARY | 2016-09-19 13:52 | External Medical Summary Rpt ---
Author Author , Organization [employer] Address Unknown Phone Unavailable Care Team Providers Care Pharmacy Services Representative Name Role Phone Aurora Maloney MD, Unavailable Unavailable Aurora Maloney MD Purpose Continuity of Care Document - 12-29-2012 through 2016 Problems Code Diagnosis DOS Provider Status 458.0 458.0 12-29-2012 [place] ORTHOSTATIC [facility] HYPOTENSION 847.0 847.0 12-29-2012 [place] SPRAIN OF [facility] NECK [facility] 850.0 850.0 12-29-2012 Martin CONCUSSION [facility] W/O [facility] 873.0 873.0 OPEN 12-29-2012 Martin WOUND OF [facility] E849.0 E849.0 12-29-2012 Martin ACCIDENT IN [facility] E884.3 E884.3 FALL 12-29-2012 [place] FROM [facility] V06.5 V06.5 12-29-2012 [place] TETANUS-DIP [facility] [TD][DT] V12.54 V12.54 12-29-2012 [place] PERSONAL HX [facility] Hospital CEREBRAL INFARCTION W/OUT RES DEFICITS [...] DOS Code Location Performer Comment CLOSURE 86.59 [facility] & Amara EDMONDS SUBCUTANE OUS NEC Encounters Encounter Start End Date Code Location Performer Type Date Emergency DENICE Maloney MD (ER) 3 20:14 3 21:[address] [facility]
--- OUTSIDE RECORDS SUMMARY | 2016-09-19 13:52 | External Medical Summary Rpt ---
Demographics Preferred Language Lao Marital Status Unknown Scientology Affiliation Unknown Race Unknown Ethnic Group Unknown Author Author , Organization [employer] Address Unknown Phone Unavailable Purpose Continuity of Care Document - through 2016 Immunization No patient found.
--- OUTSIDE RECORDS SUMMARY | 2016-09-19 13:52 | External Medical Summary Rpt ---
Author Author , Organization [employer] Address Unknown Phone Unavailable Care Team Providers Care Static Balancer Name Role Phone Aurora Maloney MD, Unavailable Unavailable Auorra Maloney MD Purpose Continuity of Care Document - 12-29-2012 through 2016 Problems Code Diagnosis DOS Provider Status 458.0 458.0 12-29-2012 [place] ORTHOSTATIC [facility] HYPOTENSION 847.0 847.0 12-29-2012 [place] SPRAIN OF [facility] NECK [facility] 850.0 850.0 12-29-2012 Martin CONCUSSION [facility] W/O [facility] 873.0 873.0 OPEN 12-29-2012 Martin WOUND OF [facility] E849.0 E849.0 12-29-2012 Martin ACCIDENT IN [facility] E884.3 E884.3 FALL 12-29-2012 Martin FROM [facility] V06.5 V06.5 12-29-2012 Martin TETANUS-DIP [facility] [TD][DT] V12.54 V12.54 12-29-2012 Martin PERSONAL HX [facility] TIA,& Hospital CEREBRAL INFARCTION W/OUT RES DEFICITS [...] DOS Code Location Performer Comment CLOSURE 86.59 [facility] Amara EDMONDS SUBCUTANE OUS NEC Encounters Encounter Start End Date Code Location Performer Type Date Emergency DENICE Maloney MD (ER) 3 20:14 3 21:51 [facility]
--- NOTE | 2016-09-20 00:05 | ACUTE CARE PROGRESS NOTE ---
Progress note Date: 09/19/16 Assessment: Elen Kendall is an 89-year-old F. She is status post cephalo-medullary nailing LEFT hip post op day # 2. She is lying down in bed. Family says she has been doing well today and has been eating and drinking well. She appears most cheerful and communicating today. No history of any fevers, chills or rigors. No history of any nausea, vomiting, chest pain or SOB. Her post transfusion H and H is 9.4 /28. Objective: Vitals,I&O,and Labs: I reviewed her vital signs, lab results, medication, nursing notes, medical progress notes and also discussed with the nursing staff regarding her progress. Exam General appearance: Alert, awake, no acute distress ENT: dry mucous membranes Cardiovascular: regular rate & rhythm Respiratory: no respiratory distress, lungs clear to auscultation bilaterally ABD: soft and nontender. Bowel sounds heard over all 4 quadrants. Skin: no gross abnormalities Neuro: non-focal On examination of her LEFT lower extremity, the limb lengths are equal. The alignment is neutral. The dressings over the LEFT hip are clean, dry and intact. The dressings were changed by me and all the 3 surgical incisions look dry, clean and healthy. Attempted movements of the LEFT hip are painful. Distal neurovascular status is intact. Thigh and calf are soft and nontender. No clinical signs of DVT. Impression: 1. Closed left hip fracture Qualifiers Encounter type: initial encounter Qualified Code: S72.002A - Fracture of unspecified part of neck of left femur, initial encounter for closed fracture 2. Parkinson disease 3. Delirium, acute 4. UTI (urinary tract infection) 5. Renal insufficiency 6. Anemia Plan: I reviewed the findings and progress with the family. The dressings were changed and the incisions are healthy. She can be mobilized/transferred with a walker and with the help of physical therapist weightbearing on the LEFT side as tolerated. Continue PT/OT, pain management with narcotic analgesics. From an orthopedic standpoint, she can be transferred back to the long-term if medically appropriate. Recommend DVT prophylaxis for 5 weeks postop- the appropriate agents include Lovenox, Aspirin 325 mg, Xarelto (Rivaroxaban), Eliquis (apixaban) and Coumadin. Follow-up in my office in 2 weeks time with check x-ray. Please feel free to call our office at [phone] for any orthopaedic questions. Medical management as per Dr. Castro team. at 0005
[2016-09-20 03:57] VITALS: BP 148/85
[2016-09-20 07:54] VITALS: BP 148/85
[2016-09-20 08:32] VITALS: BP 139/66
--- NOTE | 2016-09-20 09:14 | ACUTE CARE PROGRESS NOTE (QUA) ---
See Addendum Progress Notes Subjective Date 09/20/16 Time 0910 Patient/family reports: no complaints Nursing reports: alert Objective Findings Vital Signs Date Time Temp Pulse Resp B/P Pulse O2 O2 Flow FiO2 Ox Delivery Rate 09/20 0832 97.6 75 20 139/66 99 ROOM AIR 09/20 0754 97.0 74 20 148/85 99 09/20 0357 97.0 74 20 148/85 99 ROOM AIR 09/19 2344 97.2 78 16 149/79 93 ROOM AIR 09/19 2041 97.7 77 20 135/77 94 09/19 1945 97.7 77 20 135/77 94 ROOM AIR 09/19 1600 97.8 79 20 111/59 95 ROOM AIR 09/19 1159 97.6 81 20 152/71 91 ROOM AIR 09/19 0914 18 Current Medications Alprazolam 0 .STK-MED ONE .ROUTE (DC) Promethazine HCl 0 .STK-MED ONE .ROUTE (DC) Hydrocodone Bitart/Acetaminophen 0 .STK-MED ONE PO (DC) Enoxaparin Sodium 30 MG DAILY SC Quetiapine Fumarate 50 MG QHS PO Ropinirole HCl 2 MG BID PO Morphine Sulfate 2 MG Q4HP PRN IV Hydrocodone Bitart/Acetaminophen 1 TAB Q4HP PRN PO Hydrocodone Bitart/Acetaminophen 2 TAB Q4HP PRN PO Promethazine HCl 12.5 MG Q6HP PRN IV Senna/Docusate Sodium 1 TAB BIDP PRN PO Sodium Chloride 1,000 ML .[id number] IV Sodium Chloride 25 ML PRN PRN IV Quetiapine Fumarate 25 MG 0800,1400 PO Nitroglycerin 0.5 IN Q6 TP Ceftriaxone Sodium 1 GM 1000 IV Sodium Chloride 50 ML Aspirin 81 MG DAILY PO Levothyroxine Sodium 0.1 MG DAILY PO Pantoprazole Sodium 40 MG QHS PO Buspirone HCl 10 MG TID PO Carbidopa/Levodopa 1 TABLET QID PO Donepezil HCl 20 MG QHS PO (CKD) Alprazolam 1 MG TIDP PRN PO Morphine Sulfate 2 MG Q2HP PRN IV Ondansetron HCl 4 MG Q6HP PRN IV Sodium Chloride 10 ML PRN PRN IV Last VS-Temp:97.6 B/P:139/66 Pulse:75 Resp:20 SaO2:99 ROOM AIR Last weight lbs:109 oz:6 K.612 Method:Bed Scales Exam General appearance: normal appearance, alert, no acute distress Eyes: normal exam ENT: normal exam Neck: normal inspection Cardiovascular: normal sinus rhythm, normal peripheral pulses Respiratory: normal exam, clear to auscultation, good air movement ABD: normal exam, soft Genitourinary: normal voiding & quantity Extremities: sequential hose in place. Dressing to LEFT hip clean dry and intact Musculoskeletal: normal exam, joint pain, muscle pain Skin: normal exam, dressing in place on LEFT hip Neuro: normal exam, alert, intact, speech clear Reviewed: allergies, medications, vital signs, lab results Assessment/Plan Problem List 1. Closed left hip fracture Qualifiers: Encounter type: initial encounter Qualified Code: S72.002A - Fracture of unspecified part of neck of left femur, initial encounter for closed fracture 2. Parkinson disease 3. Delirium, acute 4. UTI (urinary tract infection) 5. Renal insufficiency 6. Anemia Patient condition Stable Plan: continue current care This inpt stay is expected to cross 2 MNs from start of care Yes Comments: UTI-E. coli negative for ESBL continue Rocephin Fracture hip-ORIF, continue physical therapy family is located to place patient in a different fci. Will recheck complete blood count in the a.m. rounded with Dr. Maloney at 0913
--- NOTE | 2016-09-20 11:32 | ST BEDSIDE DYSPHAGIA EVAL ---
SUBJECTIVE-DYSPHAGIA Date: 09/20/16 Time: 1115 Eval Type: Initial Certification - Admitted Date: 09/16/16 Primary Diagnosis: HIP FRACTURE Reason for Consult: DYSPHAGIA Pt/Caregiver Concerns: POCKETING MEDICATIONS Onset of symptoms- MEDICAL HX UNKNOWN Symptoms have worsened? NO improved? YES resolved? NO since onset. Current Diet: MECHANICAL SOFT/THINS Allergies Coded Allergies: Sulfa (Sulfonamide Antibiotics) (09/17/16) trimethoprim (09/17/16) Home Medications Reported Medications Ferrous Sulfate 325 MG PO BID Quetiapine Fumarate (Quetiapine 25MG) 37.5 MG PO 0800,1400 Quetiapine Fumarate (Quetiapine 25MG) 75 MG PO QHS ROPINIROLE HCL (Requip 1 Mg) 2 MG PO BID Lactulose (Lactulose) 20 GM PO BIDP PRN CONSTIPATION Pantoprazole Sodium (Pantoprazole 40MG) 40 MG PO DAILY Carbidopa/Levodopa (Sinemet Cr 50-200 Tablet) 1 TAB PO QID ALPRAZOLAM (Alprazolam 0.5MG) 0.5 MG PO TIDP PRN ANXIETY Docusate Sodium 250 MG PO BID Escitalopram Oxalate (Escitalopram 20MG) 20 MG PO QHS Levothyroxine Sodium (Synthroid 0.1MG) 0.1 MG PO DAILY Melatonin 10 MG PO QHS Naproxen (Naprosyn 500MG Tab) 500 MG PO BID Senna Pod (Senna Laxative) 1 TAB PO BID Acetaminophen (Acetaminophen Extra Strength) 500 MG PO Q4HP PRN PAIN Bisacodyl (Dulcolax) 10 MG RC Q3D PRN PRN CONSTIPATION Ondansetron (Zofran 4MG Odt) 4 MG PO TIDP PRN NAUSEA VOMITING Temazepam (Temazepam 15MG) 15 MG PO QHS Is this assessment r/t stroke? No OBJECTIVE COMMUNICATION/COGNITION Barriers to communication/cog? Yes Orientation POS: Name, Other (BIRTHDAY). NEG: Place, Day, Date, Year. Follows Commands POS: Follows 1-step commands. NEG: Follows 2-step commands. Able to remember swallow strategies? No Intelligibility Fair ORAL-MOTOR STRUCTURE/FUNCTION Structure/Function WFL: Labial, Buccal, Lingual, Velar, Mandibular. Vocal Quality Normal Dentition Good dentition DYSPHAGIA SIGNS W/CONSISTENCY Any S/S of Dysphagia? No ASSESSMENT/PLAN ASSESSMENT Impression Ms. Kendall, an 89 year old female, was referred for a bedside evaluation of swallow by her physician, Dr. Maloney. 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 Ms. Kendall was referred for pocketing medications in left buccal cavity. Medications have since been crushed in applesauce with no further difficulties. Ms. Kendall was given the following consistencies: thins via straw and open cup and mechanical soft. No signs of dysphagia were noted. At this time, it is recommneded that Ms. Kendall remain on current diet of mechanical soft/thins. Medications should be crushed in applesauce or pudding. At this time, speech therapy is not warranted. PLAN SWALLOW GUIDELINES Crush Meds as Allowed, Chk Mouth for Pocketing PATIENT/CAREGIVER MEDICAL MASSAGE THERAPIST educated on Diet Consistency, Swallow Guidelines Rehab Medicare G Code Plan Medicare/G Code eligible? 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
--- NOTE | 2016-09-20 11:32 | ST BEDSIDE DYSPHAGIA EVAL ---
SUBJECTIVE-DYSPHAGIA Date: 09/20/16 Time: 1115 Eval Type: Initial Certification - Admitted Date: 09/16/16 Primary Diagnosis: HIP FRACTURE Reason for Consult: DYSPHAGIA Pt/Caregiver Concerns: POCKETING MEDICATIONS Onset of symptoms- MEDICAL HX UNKNOWN Symptoms have worsened? NO improved? YES resolved? NO since onset. Current Diet: MECHANICAL SOFT/THINS Allergies Coded Allergies: Sulfa (Sulfonamide Antibiotics) (09/17/16) trimethoprim (09/17/16) Home Medications Reported Medications Ferrous Sulfate 325 MG PO BID Quetiapine Fumarate (Quetiapine 25MG) 37.5 MG PO 0800,1400 Quetiapine Fumarate (Quetiapine 25MG) 75 MG PO QHS ROPINIROLE HCL (Requip 1 Mg) 2 MG PO BID Lactulose (Lactulose) 20 GM PO BIDP PRN CONSTIPATION Pantoprazole Sodium (Pantoprazole 40MG) 40 MG PO DAILY Carbidopa/Levodopa (Sinemet Cr 50-200 Tablet) 1 TAB PO QID ALPRAZOLAM (Alprazolam 0.5MG) 0.5 MG PO TIDP PRN ANXIETY Docusate Sodium 250 MG PO BID Escitalopram Oxalate (Escitalopram 20MG) 20 MG PO QHS Levothyroxine Sodium (Synthroid 0.1MG) 0.1 MG PO DAILY Melatonin 10 MG PO QHS Naproxen (Naprosyn 500MG Tab) 500 MG PO BID Senna Pod (Senna Laxative) 1 TAB PO BID Acetaminophen (Acetaminophen Extra Strength) 500 MG PO Q4HP PRN PAIN Bisacodyl (Dulcolax) 10 MG RC Q3D PRN PRN CONSTIPATION Ondansetron (Zofran 4MG Odt) 4 MG PO TIDP PRN NAUSEA VOMITING Temazepam (Temazepam 15MG) 15 MG PO QHS Is this assessment r/t stroke? No OBJECTIVE COMMUNICATION/COGNITION Barriers to communication/cog? Yes Orientation POS: Name, Other (BIRTHDAY). NEG: Place, Day, Date, Year. Follows Commands POS: Follows 1-step commands. NEG: Follows 2-step commands. Able to remember swallow strategies? No Intelligibility Fair ORAL-MOTOR STRUCTURE/FUNCTION Structure/Function WFL: Labial, Buccal, Lingual, Velar, Mandibular. Vocal Quality Normal Dentition Good dentition DYSPHAGIA SIGNS W/CONSISTENCY Any S/S of Dysphagia? No ASSESSMENT/PLAN ASSESSMENT Impression Ms. Kendall, an 89 year old female, was referred for a bedside evaluation of swallow by her physician, Dr. Maloney. 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 Ms. Kendall was referred for pocketing medications in left buccal cavity. Medications have since been crushed in applesauce with no further difficulties. Ms. Kendall was given the following consistencies: thins via straw and open cup and mechanical soft. No signs of dysphagia were noted. At this time, it is recommneded that Ms. Kendall remain on current diet of mechanical soft/thins. Medications should be crushed in applesauce or pudding. At this time, speech therapy is not warranted. 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 benefits exhausted If patient's Medicare benefits are exhausted, please review: #Min Spent: 15 at 1132
[2016-09-20 12:42] VITALS: BP 114/78
--- NOTE | 2016-09-20 17:55 | ACUTE CARE PROGRESS NOTE ---
Progress note Date: 09/20/16 Assessment: Subjective data: Elen Kendall is an 89-year-old F. She is status post cephalo-medullary nailing LEFT hip post op day # 3. She is lying down in bed. Nursing staff say she has been doing well today and has sat out in a chair for a considerable length of time. No history of any fevers, chills or rigors. No history of any nausea, vomiting, chest pain or SOB. Objective: I reviewed her vital signs, lab results, medication, nursing notes, medical progress notes and also discussed with the nursing staff regarding her progress. Exam General appearance: Alert, awake, no acute distress ENT: dry mucous membranes Cardiovascular: regular rate & rhythm Respiratory: no respiratory distress, lungs clear to auscultation bilaterally ABD: soft and nontender. Bowel sounds heard over all 4 quadrants. Skin: no gross abnormalities Neuro: non-focal On examination of her LEFT lower extremity, the limb lengths are equal. The alignment is neutral. The dressings over the LEFT hip are clean, dry and intact. Attempted movements of the LEFT hip are painful. Distal neurovascular status is intact. Thigh and calf are soft and nontender. No clinical signs of DVT. Impression: 1. Closed left hip fracture Qualifiers Encounter type: initial encounter Qualified Code: S72.002A - Fracture of unspecified part of neck of left femur, initial encounter for closed fracture 2. Parkinson disease 3. Delirium, acute 4. UTI (urinary tract infection) 5. Renal insufficiency 6. Anemia Plan: Overall patient is doing well and has no immediate postoperative complications. She can be mobilized/transferred with a walker and with the help of physical therapist weightbearing on the LEFT side as tolerated. Continue PT/OT, pain management with narcotic analgesics. From an orthopedic standpoint, she can be discharged back to the intermediate if medically appropriate. Recommend DVT prophylaxis for 5 weeks postop- the appropriate agents include Lovenox, Aspirin 325 mg, Xarelto (Rivaroxaban), Eliquis (apixaban) and Coumadin. Follow-up in my office in 2 weeks time with check x-ray. Please feel free to call our office at [phone] for any orthopaedic questions. Medical management as per Dr. Maloney Antibiotic Stewardship (2) Current Culture Results Microbiology 09/16 1903 URINE,FO: Urine Culture - COMP ESCHERICHIA COLI
[2016-09-20 19:39] VITALS: BP 114/78
[2016-09-20 19:51] VITALS: BP 99/48
[2016-09-21 00:41] VITALS: BP 109/55
[2016-09-21 04:49] VITALS: BP 147/60
[2016-09-21 07:18] LABS: HEMOGLOBIN 9.8 g/dL (12.2-16.2); LYMPH # 0.9 K/mm3 (0.7-4.5); LYMPH % 16.5 % (10-50.0)
[2016-09-21 08:30] VITALS: BP 147/60
[2016-09-21] MEDS ORDERED: KEFLEX 500MG.500 MG PO (12:35)
[2016-09-21] MEDS ORDERED: ASPIRIN 325MG325 MG PO (12:35)
--- NOTE | 2016-09-21 12:41 | ACUTE CARE PROGRESS NOTE (QUA) ---
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 Closed left hip fracture 2. Parkinson disease 3. Delirium, acute 4. UTI (urinary tract infection) 5. Renal insufficiency 6. Anemia Patient condition Improving Plan: initiate discharge plan This inpt stay is expected to cross 2 MNs from start of care Yes Comments: will d/c to ecf today at 1241
--- NOTE | 2016-09-21 12:41 | ACUTE CARE PROGRESS NOTE (QUA) ---
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 Closed left hip fracture 2. Parkinson disease 3. Delirium, acute 4. UTI (urinary tract infection) 5. Renal insufficiency 6. Anemia Patient condition Improving Plan: initiate discharge plan This inpt stay is expected to cross 2 MNs from start of care Yes Comments: will d/c to ecf today at 1242
--- NOTE | 2016-09-21 12:49 | DISCHARGE SUMMARY STANDARD ---
Demographics Admit date: 09/16/16 Discharge date: 09/21/16 History of present illness History of present illness 89-year-old female resident [place] and currently under hospice care for failure to thrive. Family states patient is mobile per wheelchair in as a total assist from bed to wheelchair. Patient uses safety devices at the long-term and family said she probably forgot that she couldn't walk and stood and when she stood she fell. Patient was admitted for LEFT hip fracture and a surgery consult for possible surgery. Cardiology clearance for surgery. The above per Dr. Maloney. Patient's family members in the room or pruritus to history. Patient has lost her voice from the Parkinson's disease. Reportedly he has not had any cardiac history, never smoked, has never been on treatment for high blood pressure hyperlipidemia and has no reported history of diabetes. Hospital Course Hospital Course: pt had orif of her hip fx without complicaation but has uti and was placed on iv abx with e coli and placed on appropriate abx- she also was anemia and because of card and general health status was transfused 2 units without complication- this helped pt who did better and was seen by therapy and released by ortho and after discussing with pt/family will be transferred to [facility]- Discharge diagnoses Problem List 1. Closed left hip fracture 2. Parkinson disease 3. Delirium, acute 4. UTI (urinary tract infection) 5. Renal insufficiency 6. Anemia Medications Medications: Discharge meds are as noted. Follow up Follow up in office in: 2 WEEKS with: KATHYA EDMONDS, JANET BENTLEY Comment: romario need urine c/s 3 days after abx finish and dvt protection x 5 weeks on asa - we will see pt in ecf with miguel tatum at 0930
--- NOTE | 2016-09-21 12:49 | DISCHARGE SUMMARY STANDARD ---
Demographics Admit date: 09/16/16 Discharge date: 09/21/16 History of present illness History of present illness 89-year-old female resident [place] and currently under hospice care for failure to thrive. Family states patient is mobile per wheelchair in as a total assist from bed to wheelchair. Patient uses safety devices at the senior care and family said she probably forgot that she couldn't walk and stood and when she stood she fell. Patient was admitted for LEFT hip fracture and a surgery consult for possible surgery. Cardiology clearance for surgery. The above per Dr. Maloney. Patient's family members in the room or pruritus to history. Patient has lost her voice from the Parkinson's disease. Reportedly he has not had any cardiac history, never smoked, has never been on treatment for high blood pressure hyperlipidemia and has no reported history of diabetes. Hospital Course Hospital Course: pt had orif of her hip fx without complicaation but has uti and was placed on iv abx with e coli and placed on appropriate abx- she also was anemia and because of card and general health status was transfused 2 units without complication- this helped pt who did better and was seen by therapy and released by ortho and after discussing with pt/family will be transferred to [facility]- Discharge diagnoses Problem List 1. Closed left hip fracture 2. Parkinson disease 3. Delirium, acute 4. UTI (urinary tract infection) 5. Renal insufficiency 6. Anemia Medications Medications: Discharge meds are as noted. Follow up Follow up in office in: 2 WEEKS with: KATHYA EDMONDS, JANET BENTLEY Comment: romario need urine c/s 3 days after abx finish and dvt protection x 5 weeks on asa - we will see pt in ecf with miguel tatum at 0006
[2016-09-21 13:40] VITALS: BP 147/60
== END 2016-09-21 15:30 | disposition hospice, inpatient (51) | DRG 481 ==
LOC: ER 16:34 → 2ND 18:39
PROVIDERS: Emergency Medicine; Orthopaedic Surgery
PROC: 0QS736Z Reposition Left Upper Femur with Intramedullary Internal Fixation Device, Percutaneous Approach (ICD-10-PCS; principal; 2016-09-17 12:18)
DX: S72.142A Displaced intertrochanteric fracture of left femur, initial encounter for closed fracture (principal); N39.0 Urinary tract infection, site not specified; G20 Parkinson's disease; W19.XXXA Unspecified fall, initial encounter; B96.20 Unspecified Escherichia coli [E. coli] as the cause of diseases classified elsewhere; F02.80 Dementia in other diseases classified elsewhere, unspecified severity, without behavioral disturbance, psychotic disturbance, mood disturbance, and anxiety; R62.7 Adult failure to thrive; D64.9 Anemia, unspecified; Y92.129 Unspecified place in nursing home as the place of occurrence of the external cause
CPT/HCPCS: C1713; C1769; C1776; J2405; J2704; P9016

== ENCOUNTER → 2017-01-04 | Outpatient (CLI) | payer OTHER, MEDICARE ==
[~2017-01-04] MED LIST changes: +ACETAMINOPHEN500 M5 PO; +ALPRAZOLAM0.5 MG PO; +ASPIRIN 325MG325 MG PO; +DIFLUCAN 100MG100 MG PO; +DOCUSATE SODIU100 MG PO; +DULCOLAX10 M1 RC; +ESCITALOPRAM 2020 MG PO; +FERROUS SULFAT200 M1 PO; +KEFLEX 500MG.500 MG PO; +LACTULOSE10 GM/15 M PO; +LEADER MELATONIN5 MG PO; +NAPROSYN500 M1 PO; +OMEPRAZOLE40 MG PO; +QUETIAPINE FUMA25 MG PO; +SENNA LAXATIVE8.6 MG PO; +SYNTHROID 0.1M0.1 MG PO; +TEMAZEPAM15 MG PO; +ZOFRAN ODT4 MG PO
--- NOTE | 2017-01-04 14:35 | RADIOLOGY REPORT PS360 ---
FEMUR-LT-2 VIEWS HISTORY: Follow-up fracture POST OPERATIVE F/U ORDERING PHYSICIAN: JANET RASHEED MD PATIENT AGE: 89 years COMPARISON: 11/04/2016 FINDINGS: Overall no change status post gamma nail and long intramedullary jahaira stabilizing an intertrochanteric fracture in good alignment with some decreased prominence of the fracture site indicating healing. IMPRESSION: Healing left intertrochanteric fracture status post ORIF
--- NOTE | 2017-01-04 14:36 | RADIOLOGY REPORT PS360 ---
HIP LT 2-3V W/PELVIS IF PERFOR HISTORY: POST OPERATIVE F/U ORDERING PHYSICIAN: JANET RASHEED MD PATIENT AGE: 89 years COMPARISON: 11/04/2016 FINDINGS: Status post gamma no placement with long intramedullary jahaira stabilizing a healing left intertrochanteric fracture with some decreased prominence of the fracture line. There remains good alignment. No acute finding. 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 IMPRESSION: Healing left intertrochanteric fracture with alignment status post ORIF
== END ==
LOC: RAD 13:41
DX: S72.142D Displaced intertrochanteric fracture of left femur, subsequent encounter for closed fracture with routine healing (principal); Z09 Encounter for follow-up examination after completed treatment for conditions other than malignant neoplasm